=== PATIENT | male | born 1970 | race Caucasian/White ===

== ENCOUNTER 2019-06-03 12:58 | Emergency (ER) | payer SELFPAY ==
[2019-06-03 13:00] VITALS: BP 141/81; PULSE 89; RESP 16; TEMP 36.6; O2SAT 97; BMI 25.7
--- NOTE | 2019-06-03 13:19 | CT_ITS ---
STUDY: CT ABDOMEN AND PELVIS WITHOUT CONTRAST REASON FOR EXAM: Male, 49 years old. LEFT FLANK/GROIN PAIN, EPIGASTRIC PAIN RADIATION DOSAGE (If Supplied By Facility): CTDIvol = ( 12.17 ) mGy, DLP = ( 626.53 ) mGycm TECHNIQUE: Transaxial images were obtained from the dome of the diaphragm to the symphysis pubis without oral contrast, and without intravenous contrast. Sagittal and coronal images were reconstructed. Individualized dose optimization techniques were used for this CT. COMPARISON: None. FINDINGS: The visualized lung bases are unremarkable. The visualized portions of the heart are within normal limits. Normal liver. The gallbladder is contracted containing tiny gallstone. Normal spleen. Normal pancreas. Normal bilateral adrenal glands. No obstructive uropathy, there is a punctate nonobstructing stone in the left kidney. Normal visualized stomach. Normal small intestine. Normal colon. The appendix is visualized and appears normal. Findings best seen on coronal reconstructed image 59 Normal abdominal aorta. Normal inferior vena cava. Normal retroperitoneum. Normal urinary bladder. Normal abdominal wall. There are diffuse degenerative changes of the visualized lumbar spine. CT/Abdomen/Pelvis without Cont IMPRESSION: Contracted gallbladder containing a tiny gallstone Nonobstructing left nephrolithiasis No free intraperitoneal fluid, air, or suspicious adenopathy Electronically Signed: Lior Mccallum MD at 14:11 EST , Service support ,
--- NOTE | 2019-06-03 13:20 | EKG12_ITS ---
Test Reason : CP Blood Pressure : / mmHG Vent. Rate : 077 BPM Atrial Rate : 077 BPM P-R Int : 140 ms QRS Dur : 088 ms QT Int : 370 ms P-R-T Axes : 060 054 054 degrees QTc Int : 418 ms Normal sinus rhythm Normal ECG Confirmed by VERNA FIELD, JAIME ([id number]), multimedia editor MINDY PEACOCK ([id number] on 06/06/2019 10:53:54 AM Referred By: ION Confirmed By:KVNG GILLESPIE MD
--- NOTE | 2019-06-03 13:21 | ED.DCSUM_ITS ---
History of Present Illness Chief Complaint: Chest Pain Detail of Chief Complaint: Left flank pain Onset: Yesterday Narrative: Patient present secondary to left flank and groin pain. He also reports some chest congestion with slight tightness. Patient is from [place] and flew into [facility] yesterday to work a job for the next 2 weeks. He states that after getting out of the van after his flight yesterday he noted pain to the left groin area. It wraps around to the left flank. He has a history of compressed disks in his back with a pinched nerve that feels similar. He denies history of kidney stones. He also reports some recent chest congestion and mentions some tightness in his chest. - Past Medical History (1) Compression of intervertebral disc Status: Chronic (2) History of ankle surgery Status: Chronic Past Medical History - Allergies and Home Meds Allergies/Adverse Reactions: Allergies No Known Allergies Allergy (Verified 06/03/19 13:03) Primary Care Physician: [facility],Out of [NON-STAFF] - Smoking Status: Never smoker Alcohol: None Drugs: None Review of Systems General: Denies: Chills, Fever Eyes: Denies: Visual changes - bilaterally ENT: Denies: Bilateral ear pain Cardiovascular: Reports: Chest pain - Chest tightness with congestion Respiratory: Reports: Cough Gastrointestinal: Reports: Abdominal pain - Left flank pain. Denies: Vomiting, Diarrhea Genitourinary: Denies: Dysuria, Hematuria Musculoskeletal: Denies: Extremity Pain Skin: Denies: Rash Allergy: Denies: Uticaria Physical Exam Vital Signs/Narrative: Vital Signs Temp Pulse Resp BP Pulse Ox 06/03/19 13:00 98 F 89 16 141/81 H 97 Inital Vital Signs reviewed: Yes General: Well nourished, Well developed Head: Normocephalic ENT: Moist mucous membranes Neck: Supple Cardiovascular: Regular rate, Regular rhythm Respiratory: No distress, CTA bilaterally Abdomen: Soft, Nontender, Normal bowel sounds Back: - - No midline thoracic or lumbar tenderness. He does have tenderness in the lateral lumbar paraspinal muscles to the left. Point of maximum tenderness is inferior to the CVA. Extremities: Nontender Skin: Normal color, No rash Neurological: Alert, Oriented x3 Psychological: Normal affect Diagnostic/Tx/Re-eval Impressions Abdomen/Pelvis CT 06/03/19 13:19 IMPRESSION: Contracted gallbladder containing a tiny gallstone Nonobstructing left nephrolithiasis No free intraperitoneal fluid, air, or suspicious adenopathy Electronically Signed: Lior Mccallum MD at 14:11 EST , Service support , 06/03/19 13:19 Abdomen/Pelvis without Cont [CT] Stat Laboratory Results 06/03/19 13:29 Urine Color Yellow Urine Clarity Sl. Cloudy Urine pH 6.5 Ur Specific [place] 1.010 Urine Protein Negative Urine Glucose (UA) Normal Urine Ketones Negative Urine Occult Blood Negative Urine Nitrite Positive H Urine Bilirubin Negative Urine Urobilinogen Normal Ur Leukocyte Esterase Negative Urine RBC 0 SEEN Urine WBC 0 SEEN Ur Squamous Epith Cells 0-5 SEEN Urine Bacteria 0 SEEN Urine Mucus 0 SEEN - EKG Initial EKG Interpretation: Sinus Rhythm - Sinus at 77 with no acute ischemia. - Medical Decision Making Patient was given 1 tab of oxycodone and Toradol here. EKG is unremarkable. Patient states that his chest just feels congested and he is not concerned for cardiac disease. On repeat evaluation patient reports minimal improvement of left flank pain. He does have evidence of left-sided renal stones, but no dilation of the ureter or perinephric stranding. There is no blood in his urine. He may very well have pinched nerve with muscle spasm causing his current symptoms. [place]. He will be given work restrictions if they cannot provide a job for him he will be sent home. 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 ED Disposition - Plan for ED Patient: Disposition: Home or Assisted Living Diagnosis: Left flank pain Instructions: FLANK PAIN, Uncertain Cause Prescriptions: cycloBENZAPRine HCl [Flexeril] 10 mg PO TID PRN #20 tab PRN Reason: Muscle Spasm Transmission Status: Pending to [facility] Naproxen [Naprosyn] 500 mg PO BID PRN #20 tab Transmission Status: Pending to [facility] Hydrocodone Bitart/Apap 5-325 [[place] 5MG-325MG] 1 tablet PO Q4H PRN PRN 2 Days #10 tablet PRN Reason: Pain Transmission Status: Sent to [facility] Referrals: [facility],Out of [NON-STAFF] -
[2019-06-03 13:30] VITALS: BP 134/99; PULSE 87; RESP 12; O2SAT 95
[2019-06-03] MEDS: oxyCODONE 5 MG Tablet PO (13:41)
[2019-06-03 13:42] LABS: Bacteria 0 SEEN /hpf (None Seen); Mucous, Urine 0 SEEN /hpf (<or=2+); Red Blood Cells-Urine 0 SEEN /hpf (0-5); White Blood Cells 0 SEEN /hpf (0-5)
[2019-06-03] MEDS: Ketorolac 10 MG Tablet PO (13:42)
[2019-06-03] MEDS: Ondansetron ODT 4 MG Tablet PO (13:42)
[2019-06-03 13:49] LABS: Color, Urine Yellow (Yellow); Glucose, Dipstick Normal (Normal); Ketone-Dipstick Negative (Negative); Leukocyte Esterase-Dipstick Negative /ul (Negative); Nitrite-Dipstick Positive (Negative); Occult Blood-Urine Negative /ul (Negative); Protein-Dipstick Negative (Negative); Urine Bilirubin Dipstick Negative (Negative); Urine Clarity Sl. Cloudy (Clear); Urine Urobilinogen Normal (Normal); Urine pH 6.5 (5.0 - 8.0)
[2019-06-03 13:54] LABS: Squamous Epithelial Cells - UA 0-5 SEEN /hpf (0-5)
[2019-06-03 14:27] VITALS: PULSE 68; RESP 16; O2SAT 95
[2019-06-03] MEDS: HYDROcodone Bitartrate/Apap 5/325 Tablet PO (14:58)
[2019-06-03 15:01] VITALS: BP 132/75; PULSE 78; RESP 16; O2SAT 95
--- NOTE | 2019-06-03 15:03 | ED.RN ---
REVIEWED D/C INSTRUCTIONS, FOLLOW UP CARE, PRESCRIPTIONS, AND S/S THAT WOULD WARRANT A RETURN TO THE ED WITH PT. PT VERBALIZED AN UNDERSTANDING AND DENIES FURTHER QUESTIONS FOR THIS RN. PT SKIN P/W/D, RESP EVEN AND UNLABORED, PT A&O X 3, NO DISTRESS NOTED. PT AMBULATED OUT OF ED, GAIT STEADY.
== END 2019-06-03 15:04 | disposition home or self-care (01) ==
PROVIDERS: Emergency Provider Emergency Medicine
DX: R10.9 Unspecified abdominal pain (principal); R07.9 Chest pain, unspecified; R07.89 Other chest pain; R05 Cough; N20.0 Calculus of kidney; R09.89 Other specified symptoms and signs involving the circulatory and respiratory systems
CPT/HCPCS: 74176; 81001; 93005; 99284